=== PATIENT | female | born 1985 | race Caucasian/White ===

== ENCOUNTER 2020-12-18 02:24 | Emergency (ER) | payer OTHER ==
[2020-12-18 03:16] LABS: BILIRUBIN NEGATIVE (NEGATIVE); BLOOD 1+ Ery/uL (NEGATIVE); CLARITY CLEAR (CLEAR); COLOR YELLOW (YELLOW); GLUCOSE (U) NORMAL (NORMAL); LEUKOCYTES 1+ Leu/uL (NEGATIVE); NITRITE NEGATIVE (NEGATIVE); PROTEIN NEGATIVE (NEGATIVE); SPECIFIC GRAVITY >=1.030 (1.001-1.030); UROBILINOGEN 0.2 mg/dL (0.2-1.0); pH 5.5 (5.0-9.0)
[2020-12-18 03:24] LABS: BACTERIA 2+; URINARY RBC RARE
[2020-12-18 03:25] LABS: MUCOUS TRACE
[2020-12-18 03:30] LABS: BASOPHIL 0.5 % (0-2); EOSINOPHIL 1.6 % (0-5); HCT 40.1 % (37.0-47.0); HGB 13.2 g/dl (12.5-16.0); LYMPHOCYTE 35.1 % (15-48); MCH 26.9 pg (25.0-31.0); MCHC 32.9 g/dL (32.0-36.0); MCV 81.7 fL (78.0-100.0); MONOCYTE 7.2 % (0-12); MPV 10.4 fL (6.0-9.5); NEUTROPHIL 54.9 % (41-80); NRBC 0; PLT 383 K/uL (150-400); RBC 4.91 M/uL (4.20-5.40); RDW 13.9 % (11.5-14.0); WBC 9.2 K/uL (4.0-10.5)
[2020-12-18 03:33] LABS: BILIRUBIN - TOTAL 0.5 mg/dL (0.2-1.0); BUN/CREAT RATIO (CALC) 17.6 RATIO; CREATININE 0.68 mg/dL (0.51-0.95); GLOBULIN (CALCULATION) 4.7 g/dL; POTASSIUM 4.6 mmol/L (3.5-5.1); TOTAL PROTEIN 8.7 g/dL (6.4-8.2)
[2020-12-18] MEDS ORDERED: MACROBID100 MG PO (05:16)
[2020-12-18] MEDS ORDERED: ROBAXIN500 MG PO (05:16)
== END 2020-12-18 05:30 | disposition home or self-care (01) ==
LOC: FER 02:24
PROVIDERS: Emergency Medicine
DX: N39.0 Urinary tract infection, site not specified (principal); F17.200 Nicotine dependence, unspecified, uncomplicated; E07.9 Disorder of thyroid, unspecified; F41.9 Anxiety disorder, unspecified; Z79.899 Other long term (current) drug therapy
CPT/HCPCS: 36415; 80053; 81001; 83690; 85025; 99284

== ENCOUNTER 2020-12-19 23:08 | Emergency (ER) | payer OTHER ==
[~2020-12-19 23:08] MED LIST: MACROBID100 MG PO; ROBAXIN500 MG PO
[2020-12-20 00:02] LABS: BASOPHIL 0.6 % (0-2); EOSINOPHIL 1.9 % (0-5); HCT 37.6 % (37.0-47.0); HGB 12.5 g/dl (12.5-16.0); LYMPHOCYTE 35.5 % (15-48); MCH 27.1 pg (25.0-31.0); MCHC 33.2 g/dL (32.0-36.0); MCV 81.4 fL (78.0-100.0); MONOCYTE 7.7 % (0-12); MPV 10.4 fL (6.0-9.5); NEUTROPHIL 53.8 % (41-80); NRBC 0; PLT 375 K/uL (150-400); RBC 4.62 M/uL (4.20-5.40); RDW 13.9 % (11.5-14.0); WBC 10.9 K/uL (4.0-10.5)
[2020-12-20 00:03] LABS: BILIRUBIN NEGATIVE (NEGATIVE); BLOOD 1+ Ery/uL (NEGATIVE); CLARITY CLEAR (CLEAR); COLOR YELLOW (YELLOW); GLUCOSE (U) NORMAL (NORMAL); LEUKOCYTES NEGATIVE Leu/uL (NEGATIVE); NITRITE NEGATIVE (NEGATIVE); PROTEIN NEGATIVE (NEGATIVE); SPECIFIC GRAVITY >=1.030 (1.001-1.030); UROBILINOGEN 0.2 mg/dL (0.2-1.0); pH 5.5 (5.0-9.0)
[2020-12-20 00:11] LABS: BACTERIA TRACE; URINARY WBC RARE
[2020-12-20 00:14] LABS: ALBUMIN 3.7 g/dL (3.4-5.0); BILIRUBIN - TOTAL 0.2 mg/dL (0.2-1.0); BUN/CREAT RATIO (CALC) 18.8 RATIO; CREATININE 0.8 mg/dL (0.51-0.95); GLOBULIN (CALCULATION) 4.1 g/dL; TOTAL PROTEIN 7.8 g/dL (6.4-8.2)
[2020-12-20] MEDS ORDERED: PERCOCET 5-3251 EACH PO (03:06)
[2020-12-20] MEDS ORDERED: CIPRO500 MG PO (03:06)
[2020-12-20] MEDS ORDERED: ONDANSETRON ODT4 MG SL (03:06)
== END 2020-12-20 03:30 | disposition home or self-care (01) ==
LOC: FER 23:08
PROVIDERS: Emergency Medicine Emergency Medical Services
DX: R10.31 Right lower quadrant pain (principal); R10.32 Left lower quadrant pain; M54.5 Low back pain; F17.210 Nicotine dependence, cigarettes, uncomplicated
CPT/HCPCS: 36415; 80053; 81001; 82150; 83690; 85025; 87088; 96372; J0696; J1170; J1885; J2405; J2550; J7030; Q9967

== ENCOUNTER 2022-04-06 22:14 | Emergency (ER) | payer OTHER ==
[~2022-04-06 22:14] MED LIST changes: +CIPRO500 MG PO; +ONDANSETRON ODT4 MG SL; +PERCOCET 5-3251 EACH PO
[2022-04-06 23:22] LABS: BASOPHIL 0.4 % (0-2); EOSINOPHIL 0.8 % (0-5); HCT 40.7 % (37.0-47.0); HGB 13.8 g/dl (12.5-16.0); LYMPHOCYTE 18.2 % (15-48); MCH 28.3 pg (25.0-31.0); MCHC 33.9 g/dL (32.0-36.0); MCV 83.4 fL (78.0-100.0); MONOCYTE 5.4 % (0-12); MPV 10.1 fL (6.0-9.5); NEUTROPHIL 74.9 % (41-80); NRBC 0; PLT 337 K/uL (150-400); RBC 4.88 M/uL (4.20-5.40); RDW 13.7 % (11.5-14.0); WBC 11.4 K/uL (4.0-10.5)
[2022-04-07 00:03] LABS: ALBUMIN 3.9 g/dL (3.4-5.0); BILIRUBIN - TOTAL 0.5 mg/dL (0.2-1.0); BUN/CREAT RATIO (CALC) 12.9 RATIO; CREATININE 0.7 mg/dL (0.51-0.95); GLOBULIN (CALCULATION) 3.9 g/dL; POTASSIUM 3.4 mmol/L (3.5-5.1); TOTAL PROTEIN 7.8 g/dL (6.4-8.2)
[2022-04-07 00:29] LABS: BILIRUBIN NEGATIVE (NEGATIVE); BLOOD 3+ Ery/uL (NEGATIVE); GLUCOSE (U) NORMAL (NORMAL); LEUKOCYTES 1+ Leu/uL (NEGATIVE); NITRITE NEGATIVE (NEGATIVE); PROTEIN TRACE (LOW) mg/dL (NEGATIVE); SPECIFIC GRAVITY 1.015 (1.001-1.030); UROBILINOGEN 0.2 mg/dL (0.2-1.0)
[2022-04-07 00:35] LABS: CLARITY CLOUDY (CLEAR); COLOR RED (YELLOW)
[2022-04-07 00:50] LABS: AMPHETAMINES NEGATIVE (NEGATIVE); BARBITURATES NEGATIVE (NEGATIVE); ECSTASY (MDMA) NEGATIVE (NEGATIVE); MARIJUANA (THC) POSITIVE (NEGATIVE); METHADONE NEGATIVE (NEGATIVE); OPIATES NEGATIVE (NEGATIVE); OXYCODONE NEGATIVE (NEGATIVE)
[2022-04-07 00:56] LABS: BACTERIA TRACE; MUCOUS TRACE; URINARY RBC 20-50
== END 2022-04-07 02:32 | disposition home or self-care (01) ==
LOC: FER 22:14
PROVIDERS: Emergency Medicine
DX: R55 Syncope and collapse (principal); R51.9 Headache, unspecified; E03.9 Hypothyroidism, unspecified; F17.290 Nicotine dependence, other tobacco product, uncomplicated; Z79.899 Other long term (current) drug therapy
CPT/HCPCS: 36415; 80053; 80305; 81001; 84484; 85025; 93005; J2405; J7030